=== PATIENT | male | born 1975 | race Caucasian/White ===

== ENCOUNTER → 2016-12-27 | Outpatient (CLI) | payer BC, OTHER ==
[~2016-12-27] MED LIST: LISI-787 PO; OXYC-57 PO; VAREPAK PO
--- NOTE | 2016-12-27 13:53 | DIAGNOSTIC IMAGING REPORT ---
LEFT ANKLE MIN 3 VIEWS CLINICAL HISTORY: LEFT ANKLE PAIN trauma. Pain. COMPARISON: None. DISCUSSION: The bones and joint spaces appear intact. There is no evidence of fracture, dislocation or bony disease. Moderate soft tissue edema laterally IMPRESSION: Soft tissue edema. No acute bony abnormality. The above report was generated using voice recognition software. It may contain grammatical, syntax or spelling errors. Electronically signed by: Florin Meza M.D. 12/27/2016 1:52 PM Dictated Date/Time: 12/27/2016 1:51 PM
== END | disposition home or self-care (01) ==
LOC: C.RDSM 13:37
PROVIDERS: ATTEND Physician Assistant
DX: M25.579 Pain in unspecified ankle and joints of unspecified foot (principal)

== ENCOUNTER 2017-05-22 09:42 | Inpatient (IN) | payer OTHER ==
[2017-05-22] VITALS (13 sets, daily range): BP systolic 145–176; BP diastolic 65–88; PULSE 71–85; TEMP 36.5–36.8; O2SAT 94–99; BMI 46.9
[~2017-05-22] VITALS: Ht 165.1 cm; Wt 127.9 kg
--- NOTE | 2017-05-22 10:12 | EMERGENCY ROOM VISIT NOTE ---
History Report prepared by Joel: Bridget Oneal Under the Supervision of: Dr. Gómez Ramsey M.D. First contact with patient: 09:59 Chief Complaint: SHORTNESS OF BREATH Stated Complaint: SOB,DIZZY,LIGHTHEADED,CHEST TIGHTNESS,RACING PULSE History of Present Illness The patient is a 41 year old male who presents to the Emergency Room with complaints of worsening shortness of breath that initially began a few months ago. The patient states that several months ago he injured his ankle which caused him to be out of work. He states that previously at work he would be walking 6-8 miles per day. The patient states that since the injury he has not been keeping up on his physical activity. He states that now he is feeling fatigued and short of breath with small short exertions. The patient denies any cough, congestion, or wheezing. The patient's reports that the patient 's skin color has been off, noting a yellow-pale color. The patient denies any history of PE, DVT, heart disease, or anemia. He does note that his mother has a history of heart disease and diabetes. Source of History: patient Onset: a fwe months ago Position: other (global) Quality: other (shortness of breath) Timing: worsening Modifying Factors (Worsening): exertion Associated Symptoms: + fatigue, No cough Review of Systems See HPI for pertinent positives & negatives. A total of 10 systems reviewed and were otherwise negative. Past Medical & Surgical Medical Problems: (1) Fatigue (2) Hypertension (3) Microcytic anemia Family History Diabetes mellitus FH: heart disease FHx: lung disease Hypertension Kidney disease Kidney stones Social History Smoking Status: Former Smoker Smokeless Tobacco Use: No Alcohol Use: occasionally Marital Status: Housing Status: lives with family Occupation Status: employed Current/Historical Medications Scheduled [Gout Med], 0 PO UD Scheduled PRN Ibuprofen Tab (Motrin), 800 MG PO UD PRN for Pain Allergies Coded Allergies: Oxycodone (Unverified Adverse Reaction, Unknown, oxycontin: trouble withdrawing, Percocet is OK, 05/22/17) Physical Exam Vital Signs Date Time Temp Pulse Resp B/P (MAP) Pulse Ox O2 Delivery O2 Flow Rate FiO2 05/22/17 12:35 36.9 73 20 161/80 99 05/22/17 12:31 161/80 05/22/17 12:18 99 Room Air 12/14/17 12:06 73 20 100 05/22/17 12:01 149/72 05/22/17 11:36 73 20 99 05/22/17 11:31 147/79 05/22/17 11:06 67 19 98 05/22/17 11:01 145/78 05/22/17 10:58 99 Room Air 05/22/17 10:58 99 Room Air 05/22/17 10:42 72 17 98 05/22/17 10:32 131/54 05/22/17 10:12 74 17 98 05/22/17 10:01 155/71 05/22/17 10:00 75 05/22/17 09:59 168/85 05/22/17 09:46 36.9 77 18 187/84 100 Room Air Physical Exam GENERAL: Patient is in no acute distress. HEENT: No acute trauma, normocephalic atraumatic, mucous membranes moist, no nasal congestion, no scleral icterus. NECK: No stridor, no adenopathy, no meningismus, trachea is midline. LUNGS: Clear to auscultation bilaterally, no wheeze, no rhonchi, breath sounds equal. HEART: Without murmurs gallops or rubs, regular rate and rhythm. ABDOMEN: Soft, nontender, bowel sounds positive, no hernias, no peritonitis. RECTAL: Brown stool, Heme negative. EXTREMITIES: No cyanosis or edema, full range of motion of all the joints without pain or difficulty, no signs for acute trauma. NEUROLOGIC: Oriented x 3, no acute motor or sensory deficits, no focal weakness. SKIN: No rash, no jaundice, no diaphoresis. Medical Decision & Procedures ER Provider Diagnostic Interpretation: X-ray results as stated below per interpretation by me and the radiologist: CHEST ONE VIEW PORTABLE CLINICAL HISTORY: EVALUATE RESPIRATORY DISTRESS.DYSPNEA dyspnea COMPARISON STUDY: 11/10/2013 FINDINGS: The bones soft tissues and hemidiaphragms are normal. The cardiomediastinal silhouette is normal. The lungs are clear. The pulmonary vasculature is normal. IMPRESSION: Negative chest. The above report was generated using voice recognition software. It may contain grammatical, syntax or spelling errors. Electronically signed by: Florin Meza M.D. 05/22/2017 10:26 AM Dictated Date/Time: 05/22/2017 10:26 AM Laboratory Results 05/22/17 10:53 Red Blood Count 3.97, Mean Corpuscular Volume 66.5, Mean Corpuscular Hemoglobin 18.1, Mean Corpuscular Hemoglobin Concent 27.3, Mean Platelet Volume 9.4, Neutrophils (%) (Auto) 58.7, Lymphocytes (%) (Auto) 30.6, Monocytes (%) (Auto) 8.1, Eosinophils (%) (Auto) 1.7, Basophils (%) (Auto) 0.5, Neutrophils # (Auto) 4.58, Lymphocytes # (Auto) 2.38, Monocytes # (Auto) 0.63, Eosinophils # (Auto) 0.13, Basophils # (Auto) 0.04 05/22/17 10:53 Test 05/22/17 10:53 05/22/17 10:58 05/22/17 12:03 05/22/17 12:31 White Blood Count 7.79 K/uL (4.8-10.8) Red Blood Count 3.97 M/uL (4.7-6.1) Hemoglobin 7.2 g/dL (14.0-18.0) Hematocrit 26.4 % (42-52) Mean Corpuscular Volume 66.5 fL (80-100) Mean Corpuscular Hemoglobin 18.1 pg (25-34) Mean Corpuscular Hemoglobin Concent 27.3 g/dl (32-36) Platelet Count 387 K/uL (130-400) Mean Platelet Volume 9.4 fL (7.4-10.4) Neutrophils (%) (Auto) 58.7 % Lymphocytes (%) (Auto) 30.6 % Monocytes (%) (Auto) 8.1 % Eosinophils (%) (Auto) 1.7 % Basophils (%) (Auto) 0.5 % Neutrophils # (Auto) 4.58 K/uL (1.4-6.5) Lymphocytes # (Auto) 2.38 K/uL (1.2-3.4) Monocytes # (Auto) 0.63 K/uL (0.11-0.59) Eosinophils # (Auto) 0.13 K/uL (0-0.5) Basophils # (Auto) 0.04 K/uL (0-0.2) RDW Standard Deviation 45.4 fL (36.4-46.3) RDW Coefficient of Variation 18.8 % (11.5-14.5) Immature Granulocyte % (Auto) 0.4 % Immature Granulocyte # (Auto) 0.03 K/uL (0.00-0.02) Hypogranular Neutrophils 1+ Polychromasia 1+ Hypochromasia PRESENT Microcytosis PRESENT Prothrombin Time 10.4 SECONDS (9.0-12.0) Prothromb Time International Ratio 1.0 (0.9-1.1) Activated Partial Thromboplast Time 24.0 SECONDS (21.0-31.0) Partial Thromboplastin Ratio 0.9 Anion Gap 2.0 mmol/L (3-11) Est Creatinine Clear Calc Drug Dose 116.4 ml/min Estimated GFR () 103.4 Estimated GFR (Non- 89.2 BUN/Creatinine Ratio 9.1 (10-20) Calcium Level 8.6 mg/dl (8.5-10.1) Total Bilirubin 0.5 mg/dl (0.2-1) Aspartate Amino Transf (AST/SGOT) 12 U/L (15-37) Alanine Aminotransferase (ALT/SGPT) 28 U/L (12-78) Alkaline Phosphatase 77 U/L (45-117) Troponin I < 0.015 ng/ml (0-0.045) Total Protein 7.5 gm/dl (6.4-8.2) Albumin 3.6 gm/dl (3.4-5.0) Globulin 3.9 gm/dl (2.5-4.0) Albumin/Globulin Ratio 0.9 (0.9-2) Thyroid Stimulating Hormone (TSH) 1.630 uIu/ml (0.300-4.500) Bedside D-Dimer 186 ng/mlFEU (0-450) Laboratory results reviewed by me. ECG Indication: SOB/dyspnea Rate (beats per minute): 80 Rhythm: normal sinus Findings: no acute ischemic change, no ectopy ED Course 1001: The patient was evaluated in room A2. A complete history and physical exam was performed. 1136: I reevaluated the patient and he is resting. I performed a rectal exam at this time. See physical exam for further detail. 1148: I reevaluated the patient and he is resting comfortably. I discussed the test results with him and I discussed the treatment plan. He verbalized complete understanding and agreement. He is going to be evaluated for further treatment. 1158: I discussed the patients case with CONSTANTINE Moscoso. He is going to evaluate the patient for further treatment. Medical Decision The patient is a 41 year old male who presents to the ED with complaints of shortness of breath . Differential diagnoses considered include Anemia, electrolyte imbalance, thyroid disorder, pneumonia, CHF, cardiac ischemia, PE. There is no leukocytosis. The patient is quite anemic with a hemoglobin of 7. Rectal exam reveals brown stool, heme negative. There is no significant electrolyte abnormality, kidney failure or hepatitis. The patient appears to be in a euthyroid state. EKG shows a normal sinus rhythm , no acute ischemia. Cardiac enzyme testing times one is not consistent with acute cardiac injury. Chest film does not show mediastinal widening, pneumonia or CHF. The patient presents with a few months of dyspnea and fatigue. He feels short of breath with exertion primarily. Workup here shows a significant anemia. The cause for the anemia is not clear. Certainly, the low count explains his symptoms. I did speak with the patient and case management. The on-call hospitalist was consulted. A workup for the low hemoglobin is required. The patient may actually require a blood cell transfusion. Medication Reconcilliation Current Medication List: was personally reviewed by me Consults Time Called: 1154 Consulting Physician: CONSTANTINE Moscoso Returned Call: 1152 I discussed the patients case with CONSTANTINE Moscoso. He is going to evaluate the patient for further treatment. Impression Primary Impression: Anemia Additional Impressions: Weakness Shortness of breath Scribe Attestation The scribe's documentation has been prepared under my direction and personally reviewed by me in its entirety. I confirm that the note above accurately reflects all work, treatment, procedures, and medical decision making performed by me. Departure Information Dispostion Being Evaluated By Hospitalist Referrals Mike Scott D.O. (PCP) Problem Qualifiers
--- NOTE | 2017-05-22 10:27 | DIAGNOSTIC IMAGING REPORT ---
CHEST ONE VIEW PORTABLE CLINICAL HISTORY: EVALUATE RESPIRATORY DISTRESS.DYSPNEA dyspnea COMPARISON STUDY: 11/10/2013 FINDINGS: The bones soft tissues and hemidiaphragms are normal. The cardiomediastinal silhouette is normal. The lungs are clear. The pulmonary vasculature is normal. IMPRESSION: Negative chest. The above report was generated using voice recognition software. It may contain grammatical, syntax or spelling errors. Electronically signed by: Florin Meza M.D. 05/22/2017 10:26 AM Dictated Date/Time: 05/22/2017 10:26 AM
[2017-05-22] MEDS ORDERED: IBUP-1451 PO (10:32)
[2017-05-22] MEDS ORDERED: GOUT MED PO (10:34)
[2017-05-22 11:12] LABS: HEMATOCRIT 26.4 % (42-52); MEAN CELL VOLUME 66.5 fL (80-100); MEAN CORPUSCULAR HEMOGLOBIN 18.1 pg (25-34); MEAN CORPUSCULAR HGB CONC 27.3 g/dl (32-36); MEAN PLATELET VOLUME 9.4 fL (7.4-10.4); PLATELET COUNT 387 K/uL (130-400); RED BLOOD COUNT 3.97 M/uL (4.7-6.1); WHITE BLOOD COUNT 7.79 K/uL (4.8-10.8)
[2017-05-22 11:13] LABS: PARTIAL THROMBOPLASTIN RATIO 0.9; PROTHROMBIN TIME (PATIENT) 10.4 SECONDS (9.0-12.0)
[2017-05-22 11:27] LABS: ALT/SGPT 28 U/L (12-78); AST/SGOT 12 U/L (15-37); BASO % 0.5 %; BASO ABS # 0.04 K/uL (0-0.2); BLOOD UREA NITROGEN 9 mg/dl (7-18); BUN/CREATININE RATIO 9.1 (10-20); CALCIUM 8.6 mg/dl (8.5-10.1); CARBON DIOXIDE 26 mmol/L (21-32); CHLORIDE 109 mmol/L (98-107); COMPLETE YES; CREATININE 1.03 mg/dl (0.60-1.40); EOS % 1.7 %; GLUCOSE 87 mg/dl (70-99); HYPOCHROMIA PRESENT; IG% 0.4 %; LYMPH % 30.6 %; LYMPH ABS # 2.38 K/uL (1.2-3.4); MICROCYTOSIS PRESENT; MONO % 8.1 %; NEUT % 58.7 %; POLYCHROMASIA 1+; POTASSIUM 3.9 mmol/L (3.5-5.1); SODIUM 137 mmol/L (136-145)
[2017-05-22 11:39] LABS: ALB/GLOB RATIO 0.9 (0.9-2); ALKALINE PHOSPHATASE 77 U/L (45-117)
[2017-05-22] MEDS ORDERED: ONDANSETRON INJ 2 MG/ML 2 ML VIAL IV PRN (12:15)
[2017-05-22 13:14] LABS: FERRITIN 1.6 ng/ml (8.0-388.0)
[2017-05-22 13:28] LABS: ESTIMATED AVERAGE GLUCOSE 123 mg/dl; HA1C FLAG Normal (Normal)
--- NOTE | 2017-05-22 13:31 | History and Physical ---
History & Physical Date & Time of Service: May 22, 2017 at 13:15 Chief Complaint: Fatigue,Microcytic Anemia Primary Care Physician: Elliott Jc M.D. History of Present Illness Source: patient, family, hospital records 41 yo male with obesity, presents with progressive fatigue, dyspnea on exertion for 2 months. 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 He was working up until this summer when he sprained his ankle and got laid up for a few weeks. 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 For about two months, he has noticed more and more shortness of breath. He first noticed that walking long distances would cause him fatigue that he typically did not experience. Has now progressed to the point that minimal activity causes dyspnea, even getting dressed. Very little energy. His has noticed that he looks more pale. In the ED his vitals were stable, routine labs showed a Hb of 7.2. He admits to taking Ibuprofen 800mg almost every day, just one dose, usually with food. Has not noticed any epigastric discomfort. Rarely drinks alcohol. Has never noticed any dark stools. Occasionally he will see some red streaks when he wipes. He has never had a colonoscopy. He has no family history of colon cancer. Past Medical/Surgical History s/p lumbar discectomy and fusion s/p cervical fusion right shoulder arthroscopy Vasectomy Obesity Borderline DM Hypertension, untreated Gouty arthritis Family History Diabetes mellitus FH: heart disease FHx: lung disease Hypertension Kidney disease Kidney stones Mother: insulin dependent diabetes, ESRD on HD due to DM Father: of lung cancer in his 60's Social History Smoking Status: Former Smoker Smokeless Tobacco Use: No Alcohol Use: occasionally (rum and coke) Marital Status: Occupational Status: employed Immunizations History of Influenza Vaccine: No History of Tetanus Vaccine?: Unknown History of Pneumococcal: No History of Hepatitis B Vaccine: Unknown Allergies Coded Allergies: Oxycodone (Unverified Adverse Reaction, Unknown, oxycontin: trouble withdrawing, Percocet is OK, 05/22/17) Home Medications Scheduled [Gout Med], 0 PO UD Scheduled PRN Ibuprofen Tab (Motrin), 800 MG PO UD PRN for Pain Review of Systems Constitutional: + weakness, + fatigue, No fever, No chills, No sweats, No weight loss, No problem reported Eyes: No worsening of vision, No eye pain, No redness, No discharge, No diplopia, No problem reported ENT: No hearing loss, No unusual epistaxis, No nasal symptoms, No sore throat, No tinnitus, No dental problems, No trouble swallowing, No problem reported Respiratory: + dyspnea on exertion, No cough, No sputum, No wheezing, No shortness of breath, No dyspnea at rest, No hemoptysis, No problem reported Cardiovascular: No chest pain, No orthopnea, No PND, No edema, No claudication , No palpitations, No problem reported Abdomen: No pain, No nausea, No vomiting, No diarrhea, No constipation, No GI bleeding, No problem reported Musculoskeletal: + joint pain (chronic back and neck pain from prior surgeries) , No muscle pain, No swelling, No calf pain, No problem reported Neurologic: No memory loss, No paralysis, No weakness, No numbness/tingling, No vertigo, No balance problems, No problem reported Psychiatric: No depression symptoms, No anhedonism, No anxiety, No insomnia, No substance abuse, No problem reported Endocrine: + fatigue, No excessive thirst, No excessive urination, No problem reported Hematologic / Lymphatic: No abnormal bleeding/bruising, No clotting problems, No swollen lymph nodes, No night sweats, No problem reported Integumentary: No rash, No itch, No new/changing skin lesions, No color change , No bleeding, No problem reported Allergic / Immunologic: No environmental allergies, No seasonal allergies, No pet sensitivities, No food allergies, No hives, No frequent infections, No poor healing, No prolonged convalescence, No problem reported Physical Exam Vital Signs Date Time Temp Pulse Resp B/P (MAP) Pulse Ox O2 Delivery O2 Flow Rate FiO2 05/22/17 12:35 36.9 73 20 161/80 99 05/22/17 12:31 161/80 05/22/17 12:18 99 Room Air 05/22/17 12:06 73 20 100 05/22/17 12:01 149/72 05/22/17 11:36 73 20 99 05/22/17 11:31 147/79 05/22/17 11:06 67 19 98 05/22/17 11:01 145/78 05/22/17 10:58 99 Room Air 05/22/17 10:58 99 Room Air 05/22/17 10:42 72 17 98 05/22/17 10:32 131/54 05/22/17 10:12 74 17 98 05/22/17 10:01 155/71 05/22/17 10:00 75 05/22/17 09:59 168/85 05/22/17 09:46 36.9 77 18 187/84 100 Room Air General Appearance: no apparent distress, + obese Head: normocephalic, atraumatic Eyes: normal inspection, EOMI, sclerae normal, + pertinent finding (pale conjunctiva) ENT: normal ENT inspection, hearing grossly normal, pharynx normal Neck: supple, no adenopathy, no JVD, trachea midline Respiratory/Chest: chest non-tender, lungs clear, normal breath sounds, no respiratory distress, no accessory muscle use Cardiovascular: regular rate, rhythm, no edema, no gallop, no JVD, no murmur, normal peripheral pulses Abdomen/GI: normal bowel sounds, non tender, soft, no organomegaly Back: normal inspection, no CVA tenderness, no muscle spasm, normal range of motion Extremities/Musculoskelatal: normal inspection, no calf tenderness, normal capillary refill, no pedal edema, normal range of motion, pelvis stable 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, no motor/sensory deficits, alert, normal mood/affect, normal reflexes, oriented x 3 Skin: normal color, warm/dry, no rash Lymphatic: no adenopathy Diagnostics Laboratory Results Results Past 24 Hours Test 05/22/17 10:53 05/22/17 10:58 Range/Units White Blood Count 7.79 4.8-10.8 K/uL Red Blood Count 3.97 4.7-6.1 M/uL Hemoglobin 7.2 14.0-18.0 g/dL Hematocrit 26.4 42-52 % Mean Corpuscular Volume 66.5 80-100 fL Mean Corpuscular Hemoglobin 18.1 25-34 pg Mean Corpuscular Hemoglobin Concent 27.3 32-36 g/dl Platelet Count 387 130-400 K/uL Mean Platelet Volume 9.4 7.4-10.4 fL Neutrophils (%) (Auto) 58.7 % Lymphocytes (%) (Auto) 30.6 % Monocytes (%) (Auto) 8.1 % Eosinophils (%) (Auto) 1.7 % Basophils (%) (Auto) 0.5 % Neutrophils # (Auto) 4.58 1.4-6.5 K/uL Lymphocytes # (Auto) 2.38 1.2-3.4 K/uL Monocytes # (Auto) 0.63 0.11-0.59 K/uL Eosinophils # (Auto) 0.13 0-0.5 K/uL Basophils # (Auto) 0.04 0-0.2 K/uL RDW Standard Deviation 45.4 36.4-46.3 fL RDW Coefficient of Variation 18.8 11.5-14.5 % Immature Granulocyte % (Auto) 0.4 % Immature Granulocyte # (Auto) 0.03 0.00-0.02 K/uL Hypogranular Neutrophils 1+ Polychromasia 1+ Hypochromasia PRESENT Microcytosis PRESENT Prothrombin Time 10.4 9.0-12.0 SECONDS Prothromb Time International Ratio 1.0 0.9-1.1 Activated Partial Thromboplast Time 24.0 21.0-31.0 SECONDS Partial Thromboplastin Ratio 0.9 Sodium Level 137 136-145 mmol/L Potassium Level 3.9 3.5-5.1 mmol/L Chloride Level 109 98-107 mmol/L Carbon Dioxide Level 26 21-32 mmol/L Anion Gap 2.0 3-11 mmol/L Blood Urea Nitrogen 9 7-18 mg/dl Creatinine 1.03 0.60-1.40 mg/dl Est Creatinine Clear Calc Drug Dose 116.4 ml/min Estimated GFR () 103.4 Estimated GFR (Non- 89.2 BUN/Creatinine Ratio 9.1 10-20 Random Glucose 87 70-99 mg/dl Calcium Level 8.6 8.5-10.1 mg/dl Iron Level 11 35-175 mcg/dl Total Iron Binding Capacity 583 250-450 mcg/dl Ferritin 1.6 8.0-388.0 ng/ml Total Bilirubin 0.5 0.2-1 mg/dl Aspartate Amino Transf (AST/SGOT) 12 15-37 U/L Alanine Aminotransferase (ALT/SGPT) 28 12-78 U/L Alkaline Phosphatase 77 45-117 U/L Troponin I < 0.015 0-0.045 ng/ml Total Protein 7.5 6.4-8.2 gm/dl Albumin 3.6 3.4-5.0 gm/dl Globulin 3.9 2.5-4.0 gm/dl Albumin/Globulin Ratio 0.9 0.9-2 Thyroid Stimulating Hormone (TSH) 1.630 0.300-4.500 uIu/ml Bedside D-Dimer 186 0-450 ng/mlFEU CXR normal Normal EKG Impression Assessment and Plan 41 yo male with h/o obesity, HTN, borderline DM who presents with progressive fatigue, WONG - Microcytic anemia: new diagnosis, would explain fatigue and WONG Hb 7.2, he is consented for transfusion, will give 2 units check ferritin, TIBC and iron prior to transfusion clears today, consult GI for endoscopic evaluation will give Protonix IV BID - H/o borderline DM: does not see a PCP, will check HbA1c prior to transfusion - HTN: patient used to take medication, cannot recall what BP elevated here, will not initiate any treatment - Obesity - Arthritis: hold ibuprofen, depending on work up, may need to hold off DVT prophylaxis: SCD only due to potential slow blood loss Level of Care Med/Surg Advanced Directives Existing Living Will: No Existing Power of Refractory Bricklayer: No Resuscitation Status FULL RESUSCITATION VTE Prophylaxis VTE Risk Assessment Done? Y/N: Yes Risk Level: Low Given or contraindicated: SCD's Additional Copies To Elliott Jc M.D.
--- NOTE | 2017-05-22 16:11 | Gastrointestinal Consultation ---
Gastrointestinal Consultation Date of Consultation: May 22, 2017 Attending Physician: Dr. Grey Consulting Physician: Carly Alvarez PA-C Reason for Consultation: Anemia History of Present Illness Patient is a 41 year old male with a past medical history of back issues, obesity, pre-diabetes, hypertension, & gout who presented to the ER due to progressive dyspnea for several months. He reports that he was attempting to shovel snow today and became too fatigued and short of breath to continue. In the ER, he was found to have a hemoglobin of 7.2. His last hemoglobin available in our records was 12.5 in 2013. He reports that he has occasional LUQ abdominal discomfort & bloating as well as occasional bright red blood per rectum. He denies constipation or diarrhea. He reports heartburn that has been worsening recently. He reports occasional NSAID use, but denies consistent use. He denies a significant family history of GI malignancy or IBD. He reports infrequent alcohol use. He reports he has never had an EGD or a colonoscopy. He does not identify any particular foods that worsen his GI symptoms. He is currently receiving a blood transfusion at the time of my evaluation. His iron was noted at 11, TIBC 583, and Ferritin was 1.6. He offers no further complaints. Past Medical/Surgical History Medical Problems: (1) Anemia Status: Acute (2) Shortness of breath Status: Acute (3) Weakness Status: Acute Past Medical History: Back pain, obesity, pre-diabetes, hypertension, gout Past Surgical History: Vasectomy, arthroscopy, cervical fusion Family History Diabetes mellitus FH: heart disease FHx: lung disease Hypertension Kidney disease Kidney stones Social History Smoking Status: Former Smoker Alcohol Use: occasionally Marital Status: Housing Status: lives with family Occupation Status: employed Allergies Coded Allergies: Oxycodone (Unverified Adverse Reaction, Unknown, oxycontin: trouble withdrawing, Percocet is OK, 05/22/17) Current Medications Home Meds and Scripts Medications Dose Route/Sig Max Daily Dose Days Date Category Dose Instructions [Gout Med] 0 PO UD 05/22/17 Reported PT NOT SURE OF NAME OF MEDICATION BUT HASN'T TAKEN FOR A WHILE AND ONLY TAKES AT FIRST SIGN OF GOUT Motrin (Ibuprofen) 800 Mg Tab 800 Mg PO UD PRN 05/22/17 Reported Review of Systems Constitutional: No fever, No chills Eyes: No problem reported Respiratory: + dyspnea on exertion, No cough, No shortness of breath Cardiac: No chest pain Abdomen: + pain, + GI bleeding, No nausea, No vomiting, No diarrhea, No constipation, No dysphagia Musculoskeletal: No problem reported Skin: No problem reported Physical Exam Date Time Temp Pulse Resp B/P (MAP) Pulse Ox O2 Delivery O2 Flow Rate FiO2 05/22/17 15:20 36.6 80 20 156/80 97 05/22/17 15:05 36.7 80 20 156/80 97 05/22/17 14:49 36.6 85 18 176/81 05/22/17 12:35 36.9 73 20 161/80 99 05/22/17 12:31 161/80 05/22/17 12:30 36.6 71 20 165/87 (113) 98 Room Air 05/22/17 12:18 99 Room Air 05/22/17 12:06 73 20 100 05/22/17 12:01 149/72 05/22/17 11:36 73 20 99 05/22/17 11:31 147/79 05/22/17 11:06 67 19 98 05/22/17 11:01 145/78 05/22/17 10:58 99 Room Air 05/22/17 10:58 99 Room Air 05/22/17 10:42 72 17 98 05/22/17 10:32 131/54 05/22/17 10:12 74 17 98 05/22/17 10:01 155/71 05/22/17 10:00 75 05/22/17 09:59 168/85 05/22/17 09:46 36.9 77 18 187/84 100 Room Air General Appearance: WD/WN, no apparent distress Eyes: normal inspection, PERRL Respiratory/Chest: lungs clear, normal breath sounds Cardiovascular: regular rate, rhythm Abdomen: normal bowel sounds, non tender, soft Extremities: non-tender Neurologic/Psych: alert, oriented x 3 Skin: normal color Laboratory Results Last 24 Hours Test 05/22/17 10:53 05/22/17 10:58 White Blood Count 7.79 K/uL Red Blood Count 3.97 M/uL Hemoglobin 7.2 g/dL Hematocrit 26.4 % Mean Corpuscular Volume 66.5 fL Mean Corpuscular Hemoglobin 18.1 pg Mean Corpuscular Hemoglobin Concent 27.3 g/dl Platelet Count 387 K/uL Mean Platelet Volume 9.4 fL Neutrophils (%) (Auto) 58.7 % Lymphocytes (%) (Auto) 30.6 % Monocytes (%) (Auto) 8.1 % Eosinophils (%) (Auto) 1.7 % Basophils (%) (Auto) 0.5 % Neutrophils # (Auto) 4.58 K/uL Lymphocytes # (Auto) 2.38 K/uL Monocytes # (Auto) 0.63 K/uL Eosinophils # (Auto) 0.13 K/uL Basophils # (Auto) 0.04 K/uL RDW Standard Deviation 45.4 fL RDW Coefficient of Variation 18.8 % Immature Granulocyte % (Auto) 0.4 % Immature Granulocyte # (Auto) 0.03 K/uL Hypogranular Neutrophils 1+ Polychromasia 1+ Hypochromasia PRESENT Microcytosis PRESENT Prothrombin Time 10.4 SECONDS Prothromb Time International Ratio 1.0 Activated Partial Thromboplast Time 24.0 SECONDS Partial Thromboplastin Ratio 0.9 Sodium Level 137 mmol/L Potassium Level 3.9 mmol/L Chloride Level 109 mmol/L Carbon Dioxide Level 26 mmol/L Anion Gap 2.0 mmol/L Blood Urea Nitrogen 9 mg/dl Creatinine 1.03 mg/dl Est Creatinine Clear Calc Drug Dose 116.4 ml/min Estimated GFR () 103.4 Estimated GFR (Non- 89.2 BUN/Creatinine Ratio 9.1 Random Glucose 87 mg/dl Estimated Average Glucose 123 mg/dl Hemoglobin A1c 5.9 % Calcium Level 8.6 mg/dl Iron Level 11 mcg/dl Total Iron Binding Capacity 583 mcg/dl Ferritin 1.6 ng/ml Total Bilirubin 0.5 mg/dl Aspartate Amino Transf (AST/SGOT) 12 U/L Alanine Aminotransferase (ALT/SGPT) 28 U/L Alkaline Phosphatase 77 U/L Troponin I < 0.015 ng/ml Total Protein 7.5 gm/dl Albumin 3.6 gm/dl Globulin 3.9 gm/dl Albumin/Globulin Ratio 0.9 Thyroid Stimulating Hormone (TSH) 1.630 uIu/ml Bedside D-Dimer 186 ng/mlFEU Impression Patient is a 41 year old male with profound anemia with a hemoglobin of 7.2 after several months of worsening heartburn, weakness, & dyspnea on exertion. Plan 1) EGD & colonoscopy tomorrow for further evaluation of anemia. Orders placed for NPO status & bowel prep. 2) Will check a Celiac panel as well. 3) Protonix 40 mg BID. 4) Continued monitoring of H/H, transfusion or PRBCs, & supportive care per primary team. Thank you for allowing us to participate in the care of this patient. If you should have any further questions or concerns, do not hesitate to contact us. Agree with Carly Ruiz PAC as above Abd: Soft, NT, ND, +BS Add Protonix 40mg IV BID EGD and Colon in the AM
[2017-05-22] MEDS: PANTOprazole INJ 40 MG in SYRINGE 0 ML IV SCH (20:35)
[2017-05-22] MEDS ORDERED: LAVAGE SOLUTION 4000ML PO SCH (22:00)
[2017-05-23] VITALS: BP 155/95; PULSE 70; TEMP 36.8; O2SAT 98
[2017-05-23 07:42] VITALS: BP 164/99; PULSE 66; TEMP 36.6; O2SAT 96
[2017-05-23 07:44] VITALS: BP 164/99; PULSE 66; TEMP 36.6; O2SAT 96
[2017-05-23] MEDS ORDERED: LIDOCAINE HCL 2% 2 ML VIAL (20MG/ML) ONE (08:08)
[2017-05-23] MEDS ORDERED: PROPOFOL IV EMULSION 10 MG/ML 20 ML VIAL IV ONE (08:08)
[2017-05-23] MEDS ORDERED: MIDAZOLAM HCL 1 MG/ML 2ML VIAL ONE (08:09)
--- NOTE | 2017-05-23 10:12 | Anesthesiology Progress Note ---
Anesthesia Post Op Note Date & Time May 23, 2017 at 10:12 Vital Signs Pain Intensity: 0.0 Vital Signs Past 12 Hours Date Time Temp Pulse Resp B/P (MAP) Pulse Ox O2 Delivery O2 Flow Rate FiO2 05/23/17 09:59 Room Air 05/23/17 09:53 77 18 145/96 (112) 97 Room Air 05/23/17 09:53 77 18 145/96 (112) 97 Room Air 05/23/17 09:35 72 18 151/83 (105) 96 Room Air 05/23/17 09:20 70 16 143/73 (96) 96 Room Air 05/23/17 08:10 36.4 75 18 147/76 (99) 96 Room Air 05/23/17 07:44 36.6 66 18 164/99 96 Room Air 05/23/17 07:42 36.6 66 18 164/99 (120) 96 05/23/17 00:00 36.8 70 20 155/95 (115) 98 Room Air 05/23/17 00:00 Room Air Notes Mental Status: alert / awake / arousable, participated in evaluation Pt Amnestic to Procedure: Yes Nausea / Vomiting: adequately controlled Pain: adequately controlled Airway Patency, RR, SpO2: stable & adequate BP & HR: stable & adequate Hydration State: stable & adequate Anesthetic Complications: no major complications apparent
[2017-05-23] MEDS: PANTOprazole INJ 40 MG in SYRINGE 0 ML IV SCH (10:52)
--- NOTE | 2017-05-23 10:55 | GI REPORT ---
Procedure Date: 05/23/2017 8:17 AM Procedure: Colonoscopy Indications: Iron deficiency anemia secondary to chronic blood loss Medicines: Monitored Anesthesia Care Complications: No immediate complications. Estimated Blood Loss: Estimated blood loss: none. Procedure: Pre-Anesthesia Assessment: - Prior to the procedure, a History and Physical was performed, and patient medications and allergies were reviewed. The patient's tolerance of previous anesthesia was also reviewed. The risks and benefits of the procedure and the sedation options and risks were discussed with the patient. All questions were answered, and informed consent was obtained. Prior Anticoagulants: The patient has taken no previous anticoagulant or antiplatelet agents. ASA Grade Assessment: III - A patient with severe systemic disease. After reviewing the risks and benefits, the patient was deemed in satisfactory condition to undergo the procedure. After I obtained informed consent, the scope was passed under direct vision. Throughout the procedure, the patient's blood pressure, pulse, and oxygen saturations were monitored continuously. The Scope was introduced through the anus and advanced to the terminal ileum. The colonoscopy was performed without difficulty. The patient tolerated the procedure well. The quality of the bowel preparation was good. The terminal ileum, ileocecal valve, appendiceal orifice, and rectum were photographed. Findings: The perianal and digital rectal examinations were normal. A moderate amount of semi-liquid stool was found in the entire colon, making visualization difficult. Lavage of the area was performed using a large amount of normal saline, resulting in incomplete clearance with fair visualization. Non-bleeding external hemorrhoids were found during perianal exam. The hemorrhoids were large. Impression: - Stool in the entire examined colon. - Non-bleeding external hemorrhoids. - No specimens collected. Recommendation: - Return [facility] to [facility] for [facility] care. - Advance diet as tolerated. - Continue present medications. Иван Martino DO 05/23/2017 9:24:20 AM This report has been signed electronically. Note Initiated On: 05/23/2017 8:17 AM I attest to the content of the Intraoperative Record and orders documented therein, exceptions below
--- NOTE | 2017-05-23 10:55 | GI REPORT ---
Procedure Date: 05/23/2017 8:18 AM Procedure: Upper GI endoscopy Indications: Iron deficiency anemia secondary to chronic blood loss, Heartburn Medicines: Monitored Anesthesia Care Complications: No immediate complications. Estimated Blood Loss: Estimated blood loss: none. Procedure: Pre-Anesthesia Assessment: - Prior to the procedure, a History and Physical was performed, and patient medications and allergies were reviewed. The patient's tolerance of previous anesthesia was also reviewed. The risks and benefits of the procedure and the sedation options and risks were discussed with the patient. All questions were answered, and informed consent was obtained. Prior Anticoagulants: The patient has taken no previous anticoagulant or antiplatelet agents. ASA Grade Assessment: III - A patient with severe systemic disease. After reviewing the risks and benefits, the patient was deemed in satisfactory condition to undergo the procedure. After obtaining informed consent, the endoscope was passed under direct vision. Throughout the procedure, the patient's blood pressure, pulse, and oxygen saturations were monitored continuously. The Scope was introduced through the mouth, and advanced to the second part of duodenum. The upper GI endoscopy was accomplished without difficulty. The patient tolerated the procedure well. Findings: The esophagus was normal. A small hiatus hernia was present. The examined duodenum was normal. Impression: - Normal esophagus. - Small hiatus hernia. - Normal examined duodenum. - No specimens collected. Recommendation: - Perform a colonoscopy today. Иван Martino, 05/23/2017 9:19:09 AM This report has been signed electronically. Note Initiated On: 05/23/2017 8:18 AM I attest to the content of the Intraoperative Record and orders documented therein, exceptions below
[2017-05-23 11:11] VITALS: Ht 165.1 cm; Wt 127.9 kg
[2017-05-23] MEDS ORDERED: FERR324T PO (13:38)
[2017-05-23 13:47] VITALS: BP 145/96; PULSE 77; TEMP 36.4; O2SAT 97
--- NOTE | 2017-05-23 13:47 | Discharge Instructions ---
Discharge Instructions Date of Service May 23, 2017. Admission Reason for Admission: Fatigue,Microcytic Anemia Discharge Discharge Diagnosis / Problem: iron deficiency anemia Discharge Goals Goal(s): Diagnostic testing, Therapeutic intervention Activity Recommendations Activity Limitations: resume your previous activity . Instructions / Follow-Up Instructions / Follow-Up iron deficiency anemia -this appears by far most likely due to chronic ongoing blood loss from hemorrhoids. because hemorrhoids can cause this, but aren't a common cause, we felt it important to rule out other causes as well: -Dr Martino's office will set you up for a capsule endoscopy (camera pill) in the near future - this is to evaluate the small intestine for areas of bleeding -a celiac panel is pending - those results will be back by next week - although your EGD (upper endoscopy) did not show any celiac-type changes in the small intestine. (celiac disease can lead to reduced ability to absorb iron) -separate from the above workup, we'd want you to have blood counts (CBC) checked in about 2 weeks to make sure your counts are staying in a reasonable range however, as above noted, it's most likely due to blood loss from the hemorrhoids. because of that, it will be important to take care of the hemorrhoids once it's clear that they absolutely are the culprit -- first talk w Dr Martino about if he'd be able to band them endoscopically, and then if not, we'd want you referred to a general surgeon for removal -you'll need to replace iron to build your stores back up. the transfusions help with this, but you'll definitely need ongoing iron supplementation: -ferrous gluconate three times a day for the foreseeable future. take this with vitamin C to maximize how much you absorb -ferrous gluconate is usually far less constipating than ferrous sulfate, but can be constipating. if you do notice that it's causing you constipation, immediately be proactive and take stool softeners (either colace or miralax would work well) unless you have loose stools, instead of being reactive and only treating constipation once you're really "backed up -we'll want repeat iron levels checked in about 4 months to ensure your stores are getting back to replenished Current Hospital Diet Patient's current hospital diet: Regular Diet Discharge Diet Recommended Diet: Regular Diet Procedures Procedures Performed: EGD, COLONOSCOPY Pending Studies Studies pending at discharge: yes List of pending studies: celiac panel Laboratory Results Hemoglobin A1c Test 05/22/17 10:53 Range/Units Estimated Average Glucose 123 mg/dl Hemoglobin A1c 5.9 H 4.5-5.6 % this puts you in a prediabetic range. working to eliminate simple/starchy/ sugary carbs from your diet should prevent you from ever becoming a diabetic. we worry about diabetes because high sugars clog arteries, creating risk for heart attack and stroke; and few people are ever taught that type 2 diabetes is HEAVILY caused by our eating and exercise habits. have your family doc repeat an A1c in 6-12 months - with proper lifestyle change this should never become a "real" issue for you. Medical Emergencies . Who to Call and When: Medical Emergencies: If at any time you feel your situation is an emergency, please call 911 immediately. . Non-Emergent Contact Non-Emergency issues call your: Primary Care Provider . . "Provider Documentation" section prepared by Jose Hernandez. . VTE Core Measure Inpt VTE Proph given/why not?: SCD's
--- NOTE | 2017-05-23 18:47 | Discharge Summary ---
Discharge Summary Date of Service May 23, 2017. Discharge Summary Admission Date: May 22, 2017 at 12:47 Discharge Date: May 23, 2017 Discharge Disposition: Home Principal Diagnosis: microcytic iron deficiency anemia Immunizations: Have You Had Influenza Vaccine: No History of Tetanus Vaccine?: Unknown History of Pneumococcal: No History of Hepatitis B Vaccine: Unknown Procedures: DICTATED BY: Иван Martino D.O. Procedure Date: 05/23/2017 8:17 AM Procedure: Colonoscopy Indications: Iron deficiency anemia secondary to chronic blood loss Medicines: Monitored Anesthesia Care Complications: No immediate complications. Estimated Blood Loss: Estimated blood loss: none. Procedure: Pre-Anesthesia Assessment: - Prior to the procedure, a History and Physical was performed, and patient medications and allergies were reviewed. The patient's tolerance of previous anesthesia was also reviewed. The risks and benefits of the procedure and the sedation options and risks were discussed with the patient. All questions were answered, and informed consent was obtained. Prior Anticoagulants: The patient has taken no previous anticoagulant or antiplatelet agents. ASA Grade Assessment: III - A patient with severe systemic disease. After reviewing the risks and benefits, the patient was deemed in satisfactory condition to undergo the procedure. After I obtained informed consent, the scope was passed under direct vision. Throughout the procedure, the patient's blood pressure, pulse, and oxygen saturations were monitored continuously. The Scope was introduced through the anus and advanced to the terminal ileum. The colonoscopy was performed without difficulty. The patient tolerated the procedure well. The quality of the bowel preparation was good. The terminal ileum, ileocecal valve, appendiceal orifice, and rectum were photographed. Findings: The perianal and digital rectal examinations were normal. A moderate amount of semi-liquid stool was found in the entire colon, making visualization difficult. Lavage of the area was performed using a large amount of normal saline, resulting in incomplete clearance with fair visualization. Non-bleeding external hemorrhoids were found during perianal exam. The hemorrhoids were large. Impression: - Stool in the entire examined colon. - Non-bleeding external hemorrhoids. - No specimens collected. Recommendation: - Return [facility] to [facility] for [facility] care. - Advance diet as tolerated. - Continue present medications. Иван Martino DO 05/23/2017 9:24:20 AM This report has been signed electronically. Note Initiated On: 05/23/2017 8:17 AM I attest to the content of the Intraoperative Record and orders documented therein, exceptions below Dictated: 05/23/17 0817Signed: 05/23/17 1055 DICTATED BY: Иван Martino D.OScooby Procedure Date: 05/23/2017 8:18 AM Procedure: Upper GI endoscopy Indications: Iron deficiency anemia secondary to chronic blood loss, Heartburn Medicines: Monitored Anesthesia Care Complications: No immediate complications. Estimated Blood Loss: Estimated blood loss: none. Procedure: Pre-Anesthesia Assessment: - Prior to the procedure, a History and Physical was performed, and patient medications and allergies were reviewed. The patient's tolerance of previous anesthesia was also reviewed. The risks and benefits of the procedure and the sedation options and risks were discussed with the patient. All questions were answered, and informed consent was obtained. Prior Anticoagulants: The patient has taken no previous anticoagulant or antiplatelet agents. ASA Grade Assessment: III - A patient with severe systemic disease. After reviewing the risks and benefits, the patient was deemed in satisfactory condition to undergo the procedure. After obtaining informed consent, the endoscope was passed under direct vision. Throughout the procedure, the patient's blood pressure, pulse, and oxygen saturations were monitored continuously. The Scope was introduced through the mouth, and advanced to the second part of duodenum. The upper GI endoscopy was accomplished without difficulty. The patient tolerated the procedure well. Findings: The esophagus was normal. A small hiatus hernia was present. The examined duodenum was normal. Impression: - Normal esophagus. - Small hiatus hernia. - Normal examined duodenum. - No specimens collected. Recommendation: - Perform a colonoscopy today. Иван Martino 05/23/2017 9:19:09 AM This report has been signed electronically. Note Initiated On: 05/23/2017 8:18 AM I attest to the content of the Intraoperative Record and orders documented therein, exceptions below Dictated: 05/23/17 0818 ---- Last Resulted CBC prior to transfusion 2 units 05/22/17 10:53 Red Blood Count 3.97, Mean Corpuscular Volume 66.5, Mean Corpuscular Hemoglobin 18.1, Mean Corpuscular Hemoglobin Concent 27.3, Mean Platelet Volume 9.4, Neutrophils (%) (Auto) 58.7, Lymphocytes (%) (Auto) 30.6, Monocytes (%) (Auto) 8.1, Eosinophils (%) (Auto) 1.7, Basophils (%) (Auto) 0.5, Neutrophils # (Auto) 4.58, Lymphocytes # (Auto) 2.38, Monocytes # (Auto) 0.63, Eosinophils # (Auto) 0.13, Basophils # (Auto) 0.04 Last Resulted BMP 05/22/17 10:53 Item Value Date Time Mean Corpuscular Volume 66.5 fL L 05/22/17 1053 Hemoglobin A1c 5.9 % H 05/22/17 1053 Iron Level 11 mcg/dl L 05/22/17 1053 Total Iron Binding Capacity 583 mcg/dl H 05/22/17 1053 Ferritin 1.6 ng/ml L 05/22/17 1053 celiac panel pending Consultations: GI Medication Reconciliation New Medications: Ferrous Gluconate (Iron Supplement) 324 Mg Tab 324 MG PO TID, #90 TAB Continued Medications: [Gout Med] () 0 PO UD PT NOT SURE OF NAME OF MEDICATION BUT HASN'T TAKEN FOR A WHILE AND ONLY TAKES AT FIRST SIGN OF GOUT Discontinued Medications: Ibuprofen Tab (Motrin) 800 Mg Tab 800 MG PO UD PRN for Pain Discharge Exam Physical Exam: General Appearance: no apparent distress Eyes: EOMI ENT: hearing grossly normal Neck: trachea midline Respiratory/Chest: no respiratory distress Extremities: normal inspection 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 once those are negative then almost certainly relates to chronic losses from hemorrhoids --> either GI or surgery for definitive management at that point -replace iron - ferrous gluconate w vitamin C TID. repeat iron levels ~4 months -stable for home Total Time Spent: Greater than 30 minutes This includes examination of the patient, discharge planning, medication reconciliation, and communication with other providers. Discharge Instructions Please refer to the electronic Patient Visit Report (Discharge Instructions) for additional information. Additional Copies To Иван Martino D.O.
== END 2017-05-23 14:09 | disposition home or self-care (01) | DRG 812 ==
LOC: C.EDB 09:43 → ENRESERV 12:22 → C.4E 12:47
PROVIDERS: ADMIT Internal Medicine; ATTEND Family Medicine
PROC: 0DJD8ZZ Inspection of Lower Intestinal Tract, Via Natural or Artificial Opening Endoscopic (ICD-10-PCS; principal; 2017-05-23 08:00)
PROC: 0DJ08ZZ Inspection of Upper Intestinal Tract, Via Natural or Artificial Opening Endoscopic (ICD-10-PCS; principal; 2017-05-23 08:00)
DX: D50.0 Iron deficiency anemia secondary to blood loss (chronic) (principal); Z68.42 Body mass index [BMI] 45.0-49.9, adult; K64.4 Residual hemorrhoidal skin tags; K44.9 Diaphragmatic hernia without obstruction or gangrene; I10 Essential (primary) hypertension; R73.03 Prediabetes; E66.9 Obesity, unspecified; Z87.891 Personal history of nicotine dependence; Z82.49 Family history of ischemic heart disease and other diseases of the circulatory system; Z83.3 Family history of diabetes mellitus; Z84.1 Family history of disorders of kidney and ureter; Z80.1 Family history of malignant neoplasm of trachea, bronchus and lung